=== PATIENT | male | born 1985 | race Caucasian/White ===

== ENCOUNTER 2018-06-27 10:11 | Emergency (ER) | payer SELFPAY ==
[2018-06-27 10:15] VITALS: BP 164/93; PULSE 84; TEMP 98.2; BMI 31.9
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
== END 2018-06-27 10:52 | disposition home or self-care (01) ==
LOC: JERFT 10:11
PROC: 2W3QXYZ Immobilization of Right Lower Leg using Other Device (ICD-10-PCS; principal; 2018-06-27)
DX: S83.8X1A Sprain of other specified parts of right knee, initial encounter (principal); M13.861 Other specified arthritis, right knee; X50.1XXA Overexertion from prolonged static or awkward postures, initial encounter; Y93.89 Activity, other specified; Y92.89 Other specified places as the place of occurrence of the external cause; Y99.8 Other external cause status
CPT/HCPCS: 99281-25